=== PATIENT | female | born 1930 | race Hispanic/Latino ===

== ENCOUNTER 2017-10-24 12:01 | Observation (INO) | payer OTHER ==
--- NOTE | 2017-10-24 12:42 | RAD REPORT ---
EXAM DESCRIPTION: CT - Head Brain Wo Cont - 10/24/2017 12:35 pm CLINICAL HISTORY: Syncope COMPARISON: November 2016 TECHNIQUE: Computed axial tomography of the head was obtained. IV contrast was not requested. All CT scans are performed using dose optimization technique as appropriate and may include automated exposure control or mA/KV adjustment according to patient size. FINDINGS: An intracranial bleed is not seen . The ventricles are normal in caliber. Cerebral atrophy is present. No extra-axial fluid collection is noted. Moderate low-density areas within periventricular, deep and subcortical white matter likely represent ischemic changes secondary to small vessel disease. Fluid within the sinuses/ mastoids is not seen. IMPRESSION: No acute intracranial abnormality is seen. If patient's symptoms persist MRI of the bra in would be recommended.
[2017-10-24 12:56] LABS: Absolute Lymphocytes (CBC) 2.1 K/uL (0.7-4.9); Absolute Monocytes 0.5 K/uL (0.1-1.3); Absolute Neutrophil 5.7 K/uL (1.8-8.0); Basophils % 0.7 % (0-1.3); Eosinophils % 2.6 % (0-4.4); Hematocrit 38.2 % (36.0-45.0); Lymphocytes % 24.3 % (15.3-44.8); MCH 28.9 pg (27.0-35.0); MCV 89.3 fL (80-100); MPV 7.5 fL (7.6-11.3); RBC Red Blood Cell Count 4.28 M/uL (3.86-4.86)
[2017-10-24 13:02] LABS: Protime INR 0.98
[2017-10-24 13:08] LABS: Potassium 3.7 mEq/L (3.6-5.0)
[2017-10-24 13:14] LABS: Bilirubin Direct 0.1 mg/dL (0-0.2); Bilirubin Total 0.6 mg/dL (0.3-1.2); Magnesium 2.1 mg/dL (1.8-2.5); Protein, Total 7.4 g/dL (6.0-8.3)
[2017-10-24 13:28] LABS: Urine Blood NEGATIVE (NEG); Urine Glucose NEGATIVE (NEG); Urine Protein NEGATIVE (NEG); Urine Specific Gravity 1.015 (1.005-1.030)
[2017-10-24 13:29] LABS: Urine Bacteria <20 /HPF (<20); Urine Culture Reflex Order NOT NEEDED; Urine RBC <5 /HPF (NONE SEEN)
--- NOTE | 2017-10-24 15:04 | RAD REPORT ---
EXAM DESCRIPTION: CT - Abdomen Pelvis W Contrast - 10/24/2017 2:04 pm CLINICAL HISTORY: Abdominal pain COMPARISON: none. TECHNIQUE: Computed axial tomography of the abdomen pelvis was obtained. 100 cc Isovue-300 was admin istered intravenously. Oral contrast was not requested which limits evaluation of bowel. All CT scans are performed using dose optimization technique as appropriate and may include automated exposure control or mA/KV adjustment according to patient size. FINDINGS: The liver, spleen, pancreas, and left adrenal gland appear unremarkable. A 9 millimeter right adrenal nodule is seen. A 31 millimeter left renal cyst is present. A right neph rectomy has been performed Diverticula stem from the colon without evidence of diverticulitis. The appendix is normal. A fluid filled loop of small bowel within the anterior right upper pelvis is upper limits normal verona debi. This may indicate a focal ileus IMPRESSION: 9 millimeter right adrenal nodule is nonspecific. Statistically it most likely is benign . A followup CT or MRI in 6 months would be helpful. Diverticulosis without diverticulitis
--- NOTE | 2017-10-24 15:23 | ER ---
Nurse's Notes [facility] Name: Cari Newton Age: 87 yrs Sex: Female : 1930 Arrival Date: 10/24/2017 Time: 12:02 Bed 4 Private MD: Diagnosis: Syncope and collapse;Bradycardia, unspecified Presentation: 10/24 12:07 Presenting complaint: Child states: daughter reports that patient was sitting at [facility] ss when she had a syncopal episode lasting approx 15 minutes. Daughter reports that patient has an upcoming appointment to have pacemaker placed for bradycardia. Transition of care: patient was not received from another setting of care. Onset of symptoms was October 24, 2017. Care prior to arrival: None. 12:07 Method Of Arrival: Wheelchair ss 12:07 Acuity: ABBY 3 ss Historical: - Allergies: 12:09 PENICILLINS; ss - PMHx: 12:09 Hypertension; Hyperlipidemia; Dementia; Alzheimers; ss - PSHx: 12:09 L Nephrectomy; ss - Immunization history:: Adult Immunizations unknown. - Family history:: not pertinent. - Social history:: Smoking status: Patient/guardian denies using tobacco. - Hospitalizations: : No recent hospitalization is reported. Screenin:08 Abuse screen: Denies threats or abuse. Nutritional screening: No deficits noted. la1 Tuberculosis screening: No symptoms or risk factors identified. Fall Risk No fall in past 12 months (0 pts). Secondary diagnosis (15 points) IV access (20 points). Ambulatory Aid- None/Bed Rest/Nurse Assist (0 pts). Gait- Normal/Bed Rest/Wheelchair (0 pts) Mental Status- Overestimates/Forgets Limitations (15 pts.). Total Amaro Fall Scale indicates High Risk Score (45 or more points). Family Present and informed to notify staff if the need to leave the bedside. Assessment: 12:26 General: Appears in no apparent distress. Behavior is anxious. Pain: Complains of pain la1 in Pt C/O headache. Neuro: Level of Consciousness is awake, alert, obeys commands, Oriented to person, Speech is normal, Facial symmetry appears normal, Pupils are PERRLA. Cardiovascular: Heart tones S1 S2 present Capillary refill < 3 seconds Patient's skin is warm and dry. Cardiovascular: Rhythm is sinus bradycardia. Respiratory: Airway is patent Respiratory effort is even, unlabored, Respiratory pattern is regular, symmetrical, Breath sounds are clear bilaterally. GI: Abdomen is flat, non-distended, Bowel sounds present X 4 quads. Abd is soft and non tender X 4 quads. : No signs and/or symptoms were reported regarding the genitourinary system. Musculoskeletal: Circulation, motion, and sensation intact. 13:55 Reassessment: Patient appears in no apparent distress at this time. No changes from la1 previously documented assessment. Patient and/or family updated on plan of care and expected duration. Pain level reassessed. 14:36 Reassessment: Patient appears in no apparent distress at this time. No changes from la1 previously documented assessment. Patient and/or family updated on plan of care and expected duration. Pain level reassessed. 15:14 Reassessment: Pt IV out of arm upon walking in room. Bleeding controlled. la1 15:19 Reassessment: Patient appears in no apparent distress at this time. No changes from la1 previously documented assessment. Patient and/or family updated on plan of care and expected duration. Pain level reassessed. 16:15 Reassessment: Patient appears in no apparent distress at this time. No changes from la1 previously documented assessment. Patient and/or family updated on plan of care and expected duration. Pain level reassessed. family at bedside. Vital Signs: 12:09 Pulse 58; Resp 22; Pulse Ox 98% on R/A; ss 12:11 BP 121 / 100; ss 12:50 BP 125 / 74; Pulse 46; Resp 16; Temp 97.3(TE); Pulse Ox 100% ; la1 13:55 BP 130 / 95; Pulse 50; Resp 16; Pulse Ox 100% on R/A; la1 15:19 BP 141 / 48; Pulse 83; Resp 16; Pulse Ox 100% on R/A; la1 17:02 BP 139 / 51; Pulse 60; Resp 16; Pulse Ox 98% on R/A; la1 17:41 BP 134 / 56; Pulse 60; Resp 16; Temp 97.2(TE); Pulse Ox 100% on R/A; la1 12:11 Pt is unable to stay still while obtaining VS ss ED Course: 12:02 Patient arrived in ED. as 12:05 Saurabh Mendoza MD is Attending Physician. rn 12:08 Jose Menon RN is Primary Nurse. la1 12:08 Placed in gown. Bed in low position. Call light in reach. desk monitor on. Pulse ox la1 on. NIBP on. 12:09 Triage completed. ss 12:09 Arm band placed on right wrist. ss 12:34 CT completed. Patient moved to CT via stretcher. Patient moved back from CT. cw1 12:35 CT Head Brain wo Cont In Process Unspecified. EDMS 12:50 No provider procedures requiring assistance completed. Inserted saline lock: 22 gauge la1 in right antecubital area, using aseptic technique. Blood collected. 14:04 CT Abd/Pelvis - W/Contrast In Process Unspecified. EDMS 15:23 Levi Cross MD is Hospitalizing Provider. rn 18:12 Inserted saline lock: 22 gauge in left forearm, using aseptic technique. la1 18:13 Patient admitted, IV remains in place. la1 18:14 X-ray completed. Portable x-ray completed in exam room. Patient tolerated procedure jw2 well. Administered Medications: No medications were administered Outcome: 15:23 Decision to Hospitalize by Provider. rn 18:12 Admitted to Med/surg accompanied by tech, via wheelchair, room 224, with chart. la1 18:12 Condition: stable 18:12 Instructed on the need for admit. 18:13 Patient left the ED. la1 Signatures: Dispatcher [employer] Kerline Florence Roman, MD MD rn Smirch, Shelby, RN RN ss Woodley, Crystal cw1 Jose Menon RN RN laRamonita Vera jw2
--- NOTE | 2017-10-24 15:24 | EDPHYS ---
Physician Documentation [facility] Name: Cari Newton Age: 87 yrs Sex: Female : 1930 Arrival Date: 10/24/2017 Time: 12:02 Bed 4 Private MD: ED Physician Saurabh Mendoza HPI: 10/24 12:12 This 87 yrs old Female presents to ER via Wheelchair with complaints of rn syncope. 12:12 The patient has experienced syncope, became unresponsive. Onset: The symptoms/episode rn began/occurred just prior to arrival. Duration: This was a single episode. Associated signs and symptoms: Pertinent positives: abdominal pain. Current symptoms: Currently, the patient is not experiencing any symptoms. The patient has experienced similar episodes in the past. Patient at [employer], everything was fine, had unresponsive episode, lasted a few minutes, reports nausea and abd pain, no head injury. Has happened several times before, no clear etiology, has appt with [facility] cardiology dr [facility] for evaluation of pacemaker placement because last time was attributed to bradycardia. . Historical: - Allergies: 12:09 PENICILLINS; ss - PMHx: 12:09 Hypertension; Hyperlipidemia; Dementia; Alzheimers; ss - PSHx: 12:09 L Nephrectomy; ss - Immunization history:: Adult Immunizations unknown. - Family history:: not pertinent. - Social history:: Smoking status: Patient/guardian denies using tobacco. - Hospitalizations: : No recent hospitalization is reported. ROS: 12:12 Constitutional: Negative for fever, chills, and weight loss, Eyes: Negative for injury, rn pain, redness, and discharge, Neck: Negative for injury, pain, and swelling, Cardiovascular: Negative for chest pain, palpitations, and edema, Respiratory: Negative for shortness of breath, cough, wheezing, and pleuritic chest pain, Abdomen/GI: Negative for vomiting, diarrhea, and constipation, MS/Extremity: Negative for injury and deformity, Skin: Negative for injury, rash, and discoloration, Neuro: Negative for headache, numbness, tingling, and seizure. Exam: 12:15 Constitutional: This is a well developed, well nourished patient who is awake, alert, rn appears anxious and rocking back and force saying "im cold" Head/Face: Normocephalic, atraumatic. Eyes: Pupils equal round and reactive to light, extra-ocular motions intact. Lids and lashes normal. Conjunctiva and sclera are non-icteric and not injected. Cornea within normal limits. Periorbital areas with no swelling, redness, or edema. Neck: Trachea midline, no thyromegaly or masses palpated, and no cervical lymphadenopathy. Supple, full range of motion without nuchal rigidity, or vertebral point tenderness. No Meningismus. Cardiovascular: bradycardic, regular, no murmur Respiratory: Mild tachypnea, clear bilateral breath sounds Abdomen/GI: Soft, non-tender, with normal bowel sounds. No distension or tympany. No guarding or rebound. No evidence of tenderness throughout. Skin: Warm, dry with normal turgor. Normal color with no rashes, no lesions, and no evidence of cellulitis. MS/ Extremity: Pulses equal, no cyanosis. Neurovascular intact. Full, normal range of motion. Equal circumference. Neuro: Awake and alert, GCS 15, Cranial nerves II-XII grossly intact. Motor strength 5/5 in all extremities. Sensory grossly intact. Cerebellar exam normal. Vital Signs: 12:09 Pulse 58; Resp 22; Pulse Ox 98% on R/A; ss 12:11 BP 121 / 100; ss 12:50 BP 125 / 74; Pulse 46; Resp 16; Temp 97.3(TE); Pulse Ox 100% ; la1 13:55 BP 130 / 95; Pulse 50; Resp 16; Pulse Ox 100% on R/A; la1 15:19 BP 141 / 48; Pulse 83; Resp 16; Pulse Ox 100% on R/A; la1 17:02 BP 139 / 51; Pulse 60; Resp 16; Pulse Ox 98% on R/A; la1 17:41 BP 134 / 56; Pulse 60; Resp 16; Temp 97.2(TE); Pulse Ox 100% on R/A; la1 12:11 Pt is unable to stay still while obtaining VS ss MDM: 12:05 Patient medically screened. rn 15:14 Differential Diagnosis: cardiac arrhythmia, idiopathic syncope, vasovagal episode, rn bradycardia, orthostatic hypotension, dehydration. Data reviewed: vital signs, nurses notes, lab test result(s), EKG, radiologic studies, CT scan, and as a result, I will admit patient. Counseling: I had a detailed discussion with the patient and/or guardian regarding: the historical points, exam findings, and any diagnostic results supporting the discharge/admit diagnosis, lab results, radiology results, the need for further work-up and treatment in the hospital. Response to treatment: the patient's symptoms have mildly improved after treatment, and as a result, I will admit patient. Admission orders: after a detailed discussion of the patient's condition and case, the admit orders are written by me. ED course: Pt with sinus bradycardia, normal w/u otherwise, comfortable, unclear etiology of syncope, is supposed to be evaluated for need for pacemaker, including holter, but has not been performed to my knowledge, will observe overnight to Dr. Cross. . 10/24 12:06 Order name: Urine Microscopic Only rn 10/24 12:06 Order name: Basic Metabolic Panel; Complete Time: 13:21 rn 10/24 12:06 Order name: BNP; Complete Time: 14:40 rn 10/24 12:06 Order name: CBC with Diff; Complete Time: 13:21 rn 10/24 12:06 Order name: Hepatic Function; Complete Time: 13:21 rn 10/24 12:06 Order name: Lipase; Complete Time: 13:21 rn 10/24 12:06 Order name: CT Head Brain wo Cont; Complete Time: 13:06 rn 10/24 12:06 Order name: Magnesium; Complete Time: 13:21 rn 10/24 12:06 Order name: Protime (+inr); Complete Time: 13:21 rn 10/24 12:06 Order name: Ptt, Activated; Complete Time: 13:21 rn 10/24 12:06 Order name: Troponin (emerg Dept Use Only); Complete Time: 13:21 rn 10/24 12:07 Order name: Urine Microscopic Only; Complete Time: 14:40 EDMS 10/24 13:21 Order name: CT Abd/Pelvis - W/Contrast; Complete Time: 15:05 rn 10/24 13:26 Order name: Urine Dipstick--Ancillary (enter results); Complete Time: 14:40 ss 10/24 12:06 Order name: EKG; Complete Time: 12:07 rn 10/24 12:06 Order name: Cardiac monitoring; Complete Time: 12:09 rn 10/24 12:06 Order name: EKG - Nurse/Tech; Complete Time: 12:30 rn 10/24 12:06 Order name: IV Saline Lock; Complete Time: 12:51 rn 10/24 12:06 Order name: Labs collected and sent; Complete Time: 12:51 rn 10/24 12:06 Order name: NPO; Complete Time: 12:09 rn 10/24 12:06 Order name: O2 Per Protocol; Complete Time: 12:30 rn 10/24 12:06 Order name: O2 Sat Monitoring; Complete Time: 12:30 rn 10/24 12:06 Order name: Urine Dipstick-Ancillary (obtain specimen); Complete Time: 12:30 rn Administered Medications: No medications were administered Disposition: 10/24/17 15:23 Hospitalization ordered by Levi Cross for Observation. Preliminary diagnosis are Syncope and collapse, Bradycardia, unspecified. - Bed requested for Telemetry/MedSurg (observation). - Status is Observation. la1 - Condition is Stable. - Problem is new. - Symptoms have improved. UTI on Admission? No Signatures: Dispatcher [employer] EDMS Saurabh Mendoza MD MD rn Smirch, Shelby, RN RN ss Jose Menon RN RN la1 Ekaterina Viveros RN RN df
[2017-10-24] MEDS: NACHLORIDE 0.45% 500 ML IV SCH (17:30)
--- NOTE | 2017-10-24 17:49 | P.HP ---
Certification for Inpatient Patient admitted to: Observation With expected LOS: <2 Midnights Practitioner: I am a practitioner with admitting privileges, knowledge of patient current condition, hospital course, and medical plan of care. Services: Services provided to patient in accordance with Admission requirements found in Title 42 Section 412.3 of the Code of Federal Regulations Patient History Date of Service: 10/24/17 Reason for admission: Syncope History of Present Illness: Patient is 87 years of age Syriac-speaking admitted with sudden onset of feeling dizzy unresponsiveness denies any fever chills cough sputum hemoptysis the denies any weakness of her extremities no prior episodes denies any chest pain Franco diarrhea or vomiting Allergies Penicillins Allergy (Severe, Verified 10/01/17 21:48) Anaphylaxis Home Medications: Aspirin 81 mg PO DAILY 10/01/17 Atorvastatin Calcium [Lipitor*] 10 mg PO DAILY 10/01/17 Cholecalciferol (Vitamin D3) [Vitamin D 1000 Iu Tab*] 4,000 unit PO DAILY Donepezil HCl 10 mg PO BEDTIME 10/01/17 Lisinopril 10 mg PO BID 10/01/17 Memantine HCl 10 mg PO BID 10/01/17 Quetiapine Fumarate [Seroquel] 50 mg PO BID 10/01/17 Multivitamin/Iron/Folic Acid [Multi-Day Plus Iron Tablet] 1 each PO DAILY #90 tablet 10/02/17 - Past Medical/Surgical History Diabetic: No -: Hypertension -: Alzheimer's dementia -: History CVA -: CAD -: Solitary kidney -: Removal of kidney Psychosocial/ Personal History: The patient lives with her daughter. She is a . - Family History Father -: Cancer Notes: prostate CA - Social History Smoking Status: Unknown if ever smoked Alcohol use: No CD- Drugs: No Caffeine use: No Review of Systems 10-point ROS is otherwise unremarkable General: Weakness Physical Examination - Vital Signs Temperature: 97.4 F Blood Pressure: 125/74 Pulse: 46 Pulse Ox (%): 100 - Physical Exam General: Alert, Cooperative HEENT: Atraumatic Neck: Supple Respiratory: Clear to auscultation bilaterally Cardiovascular: No edema, Regular rate/rhythm, Normal S1 S2 Gastrointestinal: Normal bowel sounds, Soft and benign Musculoskeletal: No clubbing, No swelling Integumentary: No rashes, No breakdown Neurological: Normal speech, Other (Patient can move all her extremities no obvious facial weakness or asymmetry good comprehension and follow instructions) - Studies Laboratory Data (last 24 hrs) 10/24/17 12:45: PT 11.6, INR 0.98, APTT 27.1 10/24/17 12:45: WBC 8.5, Hgb 12.4, Hct 38.2, Plt Count 323 10/24/17 12:45: B-Natriuretic Peptide 267 H 10/24/17 12:45: Sodium 130 L, Potassium 3.7, BUN 11, Creatinine 0.77, Glucose 106, Magnesium 2.1, Total Bilirubin 0.6, AST 28, ALT 20, Alkaline Phosphatase 92 , Lipase 26 Assessment and Plan - Problems (Diagnosis) (1) Syncope Current Visit: No Status: Acute Plan: Patient is 87 years of age admitted with a pre syncopal attack CBC unremarkable she is mild hypernatremia no significant findings on CT scan the T of the abdomen shows a 9 mm adrenal nodule vital signs stable saturation satisfactory patient was initially bradycardic continue to monitor will also check by B12 tsh level for ordered carotid ultrasounds echocardiogram Qualifiers: Syncope type: unspecified Qualified Code(s): R55 - Syncope and collapse - Advance Directives Does patient have a Living Will: No Does patient have a Durable POA for Healthcare: Yes
--- NOTE | 2017-10-24 18:30 | RAD REPORT ---
EXAM DESCRIPTION: Ernesto Single View10/24/2017 6:16 pm CLINICAL HISTORY: Shortness of breath COMPARISON: none FINDINGS: The lungs appear clear of acute infiltrate. The heart is mildly enlarged IMPRESSION: No acute abnormalities displayed
[2017-10-24] MEDS ORDERED: QUETIAPINE FUMARATE 50 MG PO SCH (21:00)
[2017-10-24] MEDS ORDERED: ATORVASTATIN 10 MG TAB PO SCH (21:00)
[2017-10-24] MEDS: QUETIAPINE 25 MG TAB PO SCH (21:21)
[2017-10-25] MEDS: NACHLORIDE 0.45% 500 ML IV SCH ×2 (01:44→06:50)
[2017-10-25] MEDS ORDERED: NACHLORIDE 0.45% 1,000 ML IV ONE (01:44)
[2017-10-25 04:13] LABS: Thyroid Stimulating Hormone 1.26 uIU/mL (0.34-5.60)
--- NOTE | 2017-10-25 06:30 | EKG ---
Test Date: 2017-10-24 Test Time: 12:21:53 [employer] Teacher: MEASUREMENT RESULTS: Intervals: Rate: 52 FL: 188 QRSD: 154 QT: 468 QTc: 435 [place]: P: 39 FL: 188 QRS: -32 T: 131 INTERPRETIVE STATEMENTS: Sinus bradycardia Left axis deviation Left bundle branch block Abnormal ECG Compared to ECG 10/01/2017 11:55:21 No significant changes Electronically Signed On 10-25-17 06:29:15 CDT by Juarez Licea
--- NOTE | 2017-10-25 08:10 | RAD REPORT ---
EXAM DESCRIPTION: VASCarotid Artery Bilateral10/24/2017 10:15 pm CLINICAL HISTORY: Syncope COMPARISON: September 2017 FINDINGS: The velocity of the right internal carotid artery equals 38 cm/sec. The right ICA/CCA rati o 1 The velocity of the left internal carotid artery equals 47 cm/sec. The left ICA/CCA ratio 0.8 Mild to moderate plaque is present within the carotid arteries. The vertebral arteries demonstrate antegrade flow IMPRESSION: Mild to moderate plaque within the carotid arteries without evidence of a hemodynamicall y significant stenosis
[2017-10-25] MEDS ORDERED: ASPIRIN 81 MG CHEWABLE TABLET PO SCH (09:00)
[2017-10-25] MEDS: QUETIAPINE 25 MG TAB PO SCH (09:00)
--- NOTE | 2017-10-25 10:34 | P.DS ---
Admission Date: 10/24/17 Discharge Date: 10/25/17 Primary Care Provider: Dr. Zurita([place]) Disposition: ROUTINE DISCHARGE Discharge Condition: GOOD Reason for Admission: Syncope Procedures: CT head: No acute changes noted. Carotid Doppler: Mild plaque noted. No significant stenosis noted. MRI brain done last month: Showed no acute stroke. Echocardiogram: Ejection fraction 56%. Left ventricular hypertrophy noted sigmoid septum noted. Dilated left atrium. Mild aortic, mitral and tricuspid regurgitation noted. - Problems (1) Hyperlipidemia Current Visit: Yes Status: Chronic Qualifiers: Hyperlipidemia type: unspecified Qualified Code(s): E78.5 - Hyperlipidemia , unspecified (2) Bradycardia Current Visit: Yes Status: Acute (3) Syncope Onset Date: 10/25/17 Current Visit: No Status: Acute Qualifiers: Syncope type: unspecified Qualified Code(s): R55 - Syncope and collapse (4) Alzheimer's dementia Current Visit: No Status: Chronic Qualifiers: Alzheimer's disease onset: unspecified onset Dementia behavioral disturbance: without behavioral disturbance Qualified Code(s): G30.9 - Alzheimer's disease, unspecified; F02.80 - Dementia in other diseases classified elsewhere without behavioral disturbance; F02.80 - Dementia in other diseases classified elsewhere without behavioral disturbance; F02.80 - Dementia in other diseases classified elsewhere without behavioral disturbance (5) CAD (coronary artery disease) Current Visit: No Status: Chronic Qualifiers: Coronary Disease-Associated Artery/Lesion type: unspecified vessel or lesion type [place] vs. transplanted heart: unspecified whether [place] or transplanted heart Associated angina: angina presence unspecified Qualified Code(s): I25.10 - Atherosclerotic heart disease of [place] coronary artery without angina pectoris (6) Hypertension Current Visit: No Status: Chronic Qualifiers: Hypertension type: essential hypertension Qualified Code(s): I10 - Essential (primary) hypertension (7) Solitary kidney Current Visit: No Status: Chronic Brief History of Present Illness: 87-year-old female presented emergency room with dizziness that led to a syncopal episode. Patient was recently hospitalized in September for similar issues. At that time MRI was negative for any acute stroke. It was recommended at that time the patient be followed up with cardiology for Holter monitor. The patient was admitted for further evaluation. Hospital Course: During her stay the dizziness and several episode were monitored. No syncopal episodes were noted in the hospitalization. As mentioned previously MRI in the recent past showed no acute abnormality. CT of the head done during this digits showed no acute changes. Carotid Doppler was done showing no significant stenosis. Mild plaque was noted. Echocardiogram was also done. It showed an ejection fraction of 56%. Mild aortic, tricuspid and mitral regurgitation. Sigmoid septum was noted. No intervention needed. The daughter reports the patient has seen her PCP. She is in the process of following up with cardiology later this week to have a Holter monitor done. This was recommended on the last visit. Patient did have several episodes of bradycardia but not sustained. Heart rate ranging between 50-60. Patient without any significant episodes. Recommendation is for the patient to follow up with cardiology later this week for Holter monitor evaluation. Recommendation on no sudden movements especially when sitting to standing or lying to standing. Monitor for orthostatic hypotension. Patient has hypertension. She will continue with lisinopril 10 mg 1 pill twice daily. Recommendation is to maintain blood pressures less 150/80. Further adjustment can be done by her PCP. Medication may need to be on hold if blood pressure less than 110 systolic. Patient with CAD. She will continue with aspirin 81 mg daily. Patient has hyperlipidemia. She will continue with her medication-Lipitor Patient has dementia. She will continue with medication-Aricept and Namenda. Further adjustment can be done by her PCP. Patient also takes medication for insomnia. As noted above patient with bradycardia. This to be further assessed by Cardiology. Patient will need Holter monitor to further assess. Heart rate stable at this time. No need for intervention at this time. Vital Signs/Physical Exam: Temp Pulse Resp BP Pulse Ox 98.2 F 60 18 144/65 H 100 10/25/17 08:00 10/25/17 08:00 10/25/17 08:00 10/25/17 08:00 10/25/17 08:00 General: Alert, In no apparent distress, Oriented x3, Cooperative HEENT: Atraumatic, Mucous membr. moist/pink Neck: Supple Respiratory: Clear to auscultation bilaterally, Normal air movement Cardiovascular: Normal pulses, Regular rate/rhythm Gastrointestinal: Normal bowel sounds, Soft and benign, Non-distended, No masses , No rebound, No guarding Musculoskeletal: No erythema, No tenderness, No warmth Integumentary: No erythema, No warmth, No cyanosis Neurological: Normal speech, Normal strength at 5/5 x4 extr, Normal tone, Dementia Laboratory Data at Discharge: WBC 8.5 K/uL (4.3-10.9) 10/24/17 12:45 Hgb 12.4 g/dL (12.0-15.0) 10/24/17 12:45 Hct 38.2 % (36.0-45.0) 10/24/17 12:45 Plt Count 323 K/uL (152-406) 10/24/17 12:45 PT 11.6 SECONDS (9.5-12.5) 10/24/17 12:45 INR 0.98 10/24/17 12:45 APTT 27.1 SECONDS (24.3-36.9) 10/24/17 12:45 Sodium 130 mEq/L (135-145) L 10/24/17 12:45 Potassium 3.7 mEq/L (3.6-5.0) 10/24/17 12:45 BUN 11 mg/dL (6-20) 10/24/17 12:45 Creatinine 0.77 mg/dL (0.44-1.00) 10/24/17 12:45 Glucose 106 mg/dL (65-120) 10/24/17 12:45 Magnesium 2.1 mg/dL (1.8-2.5) 10/24/17 12:45 Total Bilirubin 0.6 mg/dL (0.3-1.2) 10/24/17 12:45 AST 28 IU/L (10-42) 10/24/17 12:45 ALT 20 IU/L (10-60) 10/24/17 12:45 Alkaline Phosphatase 92 IU/L (42-121) 10/24/17 12:45 B-Natriuretic Peptide 267 pg/ml (<=100) H 10/24/17 12:45 Lipase 26 U/L (22-51) 10/24/17 12:45 Home Medications: Aspirin Chewable [Aspirin Chewable*] 81 mg PO DAILY 10/24/17 Atorvastatin Calcium [Lipitor*] 10 mg PO BEDTIME 10/24/17 Docusate [Colace Cap*] 100 mg PO DAILY 10/24/17 Donepezil [Aricept*] 10 mg PO DAILY 10/24/17 Lisinopril [Prinivil*] 10 mg PO BID 10/24/17 Memantine HCl [Namenda*] 10 mg PO BID 10/24/17 Quetiapine [Seroquel*] 50 mg PO BID 10/24/17 Patient Discharge Instructions: 1. Patient will need a follow up with her PCP in 1 week to follow up this hospitalization. 2. Patient presented with dizziness and syncopal episode. No syncopal episodes noted at this time. Patient has been evaluated in the past. Previous MRI unremarkable. CT of the head negative. Carotid Doppler showed no significant stenosis. Echocardiogram done. Ejection fraction 56%. Patient is to follow up with cardiology this week for Holter monitor. Patient with bradycardia. This has remained stable. This to be monitored closely. Recommendation on no sudden movements especially when sitting to standing or lying to standing. Monitor for orthostatic hypotension. 3. Patient has hypertension. She will continue with lisinopril 10 mg 1 pill twice daily. Recommendation is to maintain blood pressures less 150/80. Further adjustment can be done by her PCP. Medication may need to be on hold if blood pressure less than 110 systolic. 4. Patient has hyperlipidemia. She will continue with her medication-Lipitor. 5. Patient has dementia. She will continue with medication-Aricept and Namenda. Further adjustment can be done by her PCP. 6. As noted above patient with bradycardia. This to be further assessed by Cardiology. Patient will need Holter monitor to further assess. Heart rate stable at this time. No need for intervention at this time. Diet: AHA Activity: Fall precautions Time spent managing pt's care (in minutes): 55
--- NOTE | 2017-10-25 11:19 | ECHO ---
HEIGHT: 5 ft 2 in WEIGHT: 97 lb 0 oz DATE OF STUDY: 10/25/[address]: Levi Cross MD 2-DIMENSIONAL: YES M.MODE: YES DOPPLER: YES COLOR FLOW: YES TDS: NO PORTABLE: NO DEFINITY: NO BUBBLE STUDY: NO DIAGNOSIS: PRE SYNCOPE CARDIAC HISTORY: CATHERIZATION: NO SURGERY: NO PROSTHETIC VALVE: NO PACEMAKER: NO MEASUREMENTS (cm) DIASTOLIC (NORMALS) SYSTOLIC (NORMALS) IVSd 1.3 (0.6-1.2) LA Diam 4.8 (1.9-4.0) LVEF 56% LVIDd 3.5 (3.5-5.7) LVIDs 2.5 (2.0-3.5) %FS 29% LVPWd 1.3 (0.6-1.2) Ao Diam 2.8 (2.0-3.7) 2 DIMENSIONAL ASSESSMENT: RIGHT ATRIUM: NORMAL LEFT ATRIUM: DILATED RIGHT VENTRICLE: NORMAL LEFT VENTRICLE: LEFT VENTRICULAR HYPERTROPHY, SIGMOID SEPTUM TRICUSPID VALVE: NORMAL MITRAL VALVE: NORMAL PULMONIC VALVE: NORMAL AORTIC VALVE: NORMAL PERICARDIAL EFFUSION: NONE AORTIC ROOT: NORMAL LEFT VENTRICULAR WALL MOTION: NORMAL. DOPPLER/COLOR FLOW: MILD AORTIC, MITRAL AND TRICUSPID REGURGITATION. NORMAL RIGHT VENTRICULAR SYSTOLIC PRESSURE. IMPAIRED LEFT VENTRICULAR RELAXATION. COMMENTS: NORMAL LEFT VENTRICULAR EJECTION FRACTION. LEFT VENTRICULAR HYPERTROPHY. SIGMOID SEPTUM. DILATED LEFT ATRIUM. MILD AORTIC, MITRAL AND TRICUSPID REGURGITATION. TECHNOLOGIST: ANNAMARIA WILLIAM
[2017-10-25] MEDS ORDERED: ENOXAPARIN 40 MG/0.4 ML SQ SCH (17:00)
[2017-10-25] MEDS ORDERED: MEMANTINE HCL 10 MG TABLET PO SCH (21:00)
[2017-10-25] MEDS ORDERED: QUETIAPINE 25 MG TAB PO SCH (21:00)
[2017-10-25] MEDS ORDERED: LISINOPRIL 10 MG TAB PO SCH (21:00)
[2017-10-25] MEDS ORDERED: DONEPEZIL HCL 5 MG TAB PO SCH (21:00)
[2017-10-26] MEDS ORDERED: DOCUSATE NA 100 MG CAP PO SCH (09:00)
== END 2017-10-25 13:14 | disposition home or self-care (01) ==
LOC: ER 12:01 → ERHOLD 15:26 → 2ND 17:55
PROVIDERS: ADMIT Internal Medicine Sleep Medicine; ATTEND Family Medicine
DX: R55 Syncope and collapse (principal); R00.1 Bradycardia, unspecified; I10 Essential (primary) hypertension; G30.9 Alzheimer's disease, unspecified; F02.80 Dementia in other diseases classified elsewhere, unspecified severity, without behavioral disturbance, psychotic disturbance, mood disturbance, and anxiety; I25.10 Atherosclerotic heart disease of native coronary artery without angina pectoris; Z90.5 Acquired absence of kidney; Z86.73 Personal history of transient ischemic attack (TIA), and cerebral infarction without residual deficits
CPT/HCPCS: 36415; 70450; 71045; 74177; 80048; 80076; 82607; 83690; 83735; 83880; 84443; 84484; 85025; 85610; 85730; 93005; 93306; 93880; 99285; G0378 ×2; Q9967; 81003; 81015